=== PATIENT | male | born 1960 | race Caucasian/White ===

== ENCOUNTER 2016-09-14 08:47 | Outpatient (CLI) | payer OTHER ==
[2016-09-14 09:07] LABS: BASOPHILS % 0.6 (0.0-1.5); EOSINOPHILS % 0.4 % (0.0-6.8); LYMPHOCYTES # 1.8 # k/uL (0.6-4.0); MEAN CORPUSCULAR HEMOGLOBIN 29.8 pg (28.0-34.0); MONOCYTES # 0.6 # k/uL (0.0-0.9); MONOCYTES % 9.9 % (0.0-11.0); NEUTROPHILS # 3.2 # k/uL (1.4-7.7)
[2016-09-14 09:35] LABS: eGFR (African) > 60; eGFR (Non-African) > 60
== END 2016-09-14 09:02 ==
LOC: LAB 08:47
PROVIDERS: ATTEND Family Medicine
DX: R50.81 Fever presenting with conditions classified elsewhere (principal)
CPT/HCPCS: 36415; 80053; 85025

== ENCOUNTER 2017-10-09 09:35 | Outpatient (CLI) | payer MEDICARE ==
[2017-10-09 10:19] LABS: BASOPHILS % 0.8 (0.0-1.5); EOSINOPHILS % 2.3 % (0.0-6.8); MEAN CORPUSCULAR HEMOGLOBIN 30.2 pg (28.0-34.0); MONOCYTES % 4.6 % (0.0-11.0); NEUTROPHILS # 3.7 # k/uL (1.4-7.7)
[2017-10-09 10:23] LABS: APPEARANCE,URINE Clear (CLEAR); COLOR,URINE Yellow (YELLOW); OCCULT BLOOD,URINE Negative (NEGATIVE); UROBILINOGEN URINE 0.2 Eu (0.2-1.0)
[2017-10-09 10:57] LABS: eGFR (African) > 60; eGFR (Non-African) > 60
== END 2017-10-09 09:36 ==
LOC: LAB 09:35
PROVIDERS: ATTEND Family Medicine
DX: Z12.5 Encounter for screening for malignant neoplasm of prostate (principal); M54.5 Low back pain; Z13.6 Encounter for screening for cardiovascular disorders; B19.20 Unspecified viral hepatitis C without hepatic coma
CPT/HCPCS: 36415; 80053; 80061; 81002; 85025; 87522; G0103